=== PATIENT | male | born 1955 | race Caucasian/White ===

== ENCOUNTER 2023-06-25 06:59 | Day surgery (SDC) | payer MEDICARE, OTHER ==
[~2023-06-25] VITALS: Ht 172.7 cm; Wt 78.0 kg
[~2023-06-25 06:59] MED LIST: DUPIXENT200 MG/1.1 SQ; FLAX SEED OIL1 EACH PO; HYDROXYZINE HCL10 MG PO; LISINOPRIL-HCT1 EACH PO; LYRICA25 MG PO
[2023-06-25 07:25] VITALS: BP 160/95
--- NOTE | 2023-06-25 08:58 | NUR ---
06/25/23 0858 Sima Hayes 0851-PATIENT ARRIVED TO PACU ON 3L NC RR EVEN. PATIENT AWAKE DROWSY DENIES PAIN OR NAUSEA HOB ELEVATED IVF INFUSING. ABDOMEN SOFT. PATIENT DOZES BACK TO SLEEP. 0855-PATIENT SLEEPING APNEIC 95% 3L NC AROUSES TO VERBAL STIMULI TAKES DEEP BREATHES. REMAINS DROWSY. STOP BANG SCORE OF 3 WILL SEND SLEEP APNEA HANDOUT.
[2023-06-25 09:26] VITALS: BP 129/90
--- NOTE | 2023-06-26 08:16 | OR ---
[facility] [address], [place] [address] Signed DATE OF OPERATION: 06/25/2023 SURGEON: Bibi Ruelas MD PREOPERATIVE DIAGNOSES: 1. Significant truncal rash of unknown etiology. 2. Daily alcohol use. POSTOPERATIVE DIAGNOSIS: Mild distal gastritis. PROCEDURE: EGD with CLOtest and biopsies of the pyloric bulb and antrum. ESTIMATED BLOOD LOSS: None. INDICATIONS: Mary Grace is a 68-year-old gentleman, asked to see me for upper endoscopy. He developed rather significant rash around his trunk and arms. 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 Despite skin biopsies, the etiology is still unknown. He has been using hydroxyzine and triamcinolone cream. He then started on Dupixent. So far, nothing has improved the rash. There is some concern that he might have an underlying cancer. He went up to [place], [place], had a colonoscopy which he said was negative except for a small polyp. We have been trying to track down those results. His chest x-ray has been negative. He came to me here in [place], [place] for his upper endoscopy. He said he has no upper or lower GI complaints. His came with him to the office as well as today. In the office, I gave him a pamphlet on upper endoscopy. We had reviewed the above findings. We reviewed upper endoscopy as well. There is risk including, but not limited to gas bloating, crampy abdominal pain, bleeding, perforation requiring surgery, and missed diagnosis. We also reviewed the need for IV conscious sedation. He had expressed understanding and wished to proceed. PROCEDURE NOTE: Mary Grace was taken into our endoscopy suite and placed in the supine semi-recumbent position. He was given a total of 6 mg of Versed and 100 mcg of fentanyl to cover the case. A bite block was utilized. The posterior oropharynx was anesthetized with Hurricaine spray. The adult gastroscope was introduced and advanced down into the third portion of the duodenum without difficulty. The duodenum and pyloric channel were unremarkable. I could not directly visualize the ampulla of Vater with the Electronically Signed By: BIBI RUELAS MD 06/26/23 0816 PATIENT NAME: MARY GRACE CRUZ OPERATIVE REPORT DATE OF : 57 REPORT #: [id number] PHYSICIAN: BIBI RUELAS MD PCP: VERONA SPENCER MD REPORT IS CONFIDENTIAL AND NOT TO BE RELEASED WITHOUT AUTHORIZATION [facility] [address], [place] [address] Signed forward-viewing scope. However, I looked around the area and saw no obvious tumor. He had a little bit of punctate erythematous changes in the distal half of the stomach. We went ahead and took a biopsy of the pyloric bulb as well as the antrum for pathologic review. We took an additional biopsy of the antrum for CLOtest. Upon retroflexion of the scope, I could not see an obvious hiatal hernia. He was starting to wake up and coughed and looked around a bit and was difficult to insufflate the stomach enough to get an excellent view. The scope was withdrawn up through the area of the GE junction. There was no evidence of stricture or gastric or esophageal varices. Very minimal disruption to the Z-line. No distal esophagitis. No Cox's mucosa. The middle and upper esophagus were unremarkable. After this, the gas was suctioned out and the gastroscope removed. Mary Grace tolerated the procedure quite well. RECOMMENDATIONS: Mary Grace is welcome to come back to my office in 7 to 14 days to review his results. However, he lives 1.5 hours away and he might consider simply going to his primary care provider in [place], [place]. Bibi Ruelas MD ALB/MODL /[id number] cc: MD Erum Frederick PA Copies: BIBI RUELAS MD ~ Electronically Signed By: BIBI RUELAS MD 06/26/23 0816 PATIENT NAME: MARY GRACE CRUZ OPERATIVE REPORT DATE OF : 57 REPORT #: [id number] PHYSICIAN: BIBI RUELAS MD PCP: VERONA SPENCER MD REPORT IS CONFIDENTIAL AND NOT TO BE RELEASED WITHOUT AUTHORIZATION
--- NOTE | 2023-06-27 12:57 | PATH ---
[facility] [address] [place] [place] [place] [address] Signed SPECIMEN(S): A ANTRUM/ANTRAL BULB BIOPSY SPECIMEN(S): B ANTRUM/ANTRAL BIOPSY SPECIMEN SOURCE: A. ANTRUM/ANTRAL BULB BIOPSY B. ANTRUM/ANTRAL BIOPSY CLINICAL HISTORY: HX: Screening. DX: Gastritis, unknown origin. FINAL PATHOLOGIC DIAGNOSIS: A. Antrum/antral bulb, biopsy: - Duodenal mucosa with mild reactive features and slight chronic inflammation. - Negative for atypical features. - Negative for significantly increased epithelial lymphocytes. B. Antrum/antral biopsy: - Benign gastric-type mucosa with focal slight chronic inflammation. - Negative for evidence of Helicobacter organisms on routine HE-stained sections. JVR:akua MICROSCOPIC EXAMINATION: Histologic sections of all submitted blocks are examined by light microscopy. These findings, together with the gross examination, support the pathologic diagnosis. GROSS DESCRIPTION: A. The specimen, labeled and designated "Botjayceeuhr, R, stomach antrum/pylorus bulb biopsy," is received in formalin and consists of 1 deal soft tissue fragment measuring 0.2 x 0.4 cm is submitted entirely in (A1). B. The specimen, labeled and designated "Botefuhr, R, "Stomach antrum/pylorus biopsy," is received in formalin and consists of 1 deal soft tissue fragment measuring 0.2 x 0.4 cm and is submitted entirely in (B1). MMA (under the direct supervision of a pathologist) The Gross Description was prepared using a voice recognition system. The report was reviewed for accuracy; however, sound-alike word errors, addition and/or deletions may occur. If there is any question about this report, please contact Client Services. PATIENT NAME: MARY GRACE CRUZ PATHOLOGY DATE OF : 57 REPORT #: [id number] PHYSICIAN: IRVIN PATHOLOGY PCP: VERONA SPENCER MD REPORT IS CONFIDENTIAL AND NOT TO BE RELEASED WITHOUT AUTHORIZATION [facility] [address] [facility] [place] [address] Signed PERFORMING LABORATORY: Technical component was performed by [facility], [address] [place] [id number] (CLIA# [id number]). Professional interpretation was performed by [facility] - [address] [address] (CLIA#: [id number]). Diagnostician: Iglesia Diaz MD Pathologist Electronically Signed 06/27/2023 Copies: ~ PATIENT NAME: MARY GRACE CRUZ PATHOLOGY DATE OF : 57 REPORT #: [id number] PHYSICIAN: IRVIN PATHOLOGY PCP: VERONA SPENCER MD REPORT IS CONFIDENTIAL AND NOT TO BE RELEASED WITHOUT AUTHORIZATION
== END 2023-06-25 09:35 | disposition home or self-care (01) ==
LOC: DS 06:59
PROVIDERS: ATTEND Colon & Rectal Surgery
PROC: 0DB68ZX Excision of Stomach, Via Natural or Artificial Opening Endoscopic, Diagnostic (ICD-10-PCS; principal; 2023-06-25 08:15)
DX: K29.50 Unspecified chronic gastritis without bleeding (principal); Z78.9 Other specified health status; I10 Essential (primary) hypertension; E78.00 Pure hypercholesterolemia, unspecified; M19.042 Primary osteoarthritis, left hand; K29.80 Duodenitis without bleeding
CPT/HCPCS: 36415; 87077; 88305; G0500; J2250; J3010; J7121